=== PATIENT | female | born 1985 | race Asian ===

== ENCOUNTER 2016-09-16 08:23 | Inpatient (IN) ==
[2016-09-16] MEDS ORDERED: REGLAN PO ONE (08:30)
[2016-09-16] MEDS ORDERED: KEFZOL 1 GM/D5W 1 GM/50 ML IVPB IV PRN (08:30)
[2016-09-16] MEDS ORDERED: LR 1,000 ML IV SCH ×2 (08:30→11:00)
[2016-09-16] MEDS ORDERED: LR 500 ML IV ONE (08:30)
[2016-09-16] MEDS ORDERED: PEPCID PO ONE (08:30)
[2016-09-16] MEDS ORDERED: PEPCID IV ONE (11:00)
[2016-09-16 11:01] LABS: URINE SOURCE VOIDED
[2016-09-16 11:03] LABS: MANUAL DIFF NEEDED? NO
[2016-09-16 11:05] LABS: BASO% 0.1 % (0.0-0.8); EOS# 0.03 X1000 (0.0-0.7); EOS% 0.4 % (0.0-10.0); HEMOGLOBIN 13.3 g/dL (12.0-16.0); IMM GRAN# 0.04 X1000 (0.0-0.04); IMM GRAN% 0.5 % (0.0-0.5); LYMPH% 22.3 % (20.5-51.1); MCH 29.7 PG (27-31); MCHC 34.1 g/dL (33-37); MCV 87.1 FL (81-99); MONO# 0.74 X1000 (0.11-0.59); MONO% 8.7 % (1.7-9.3); MPV 11.3 FL (7.4-10.4); PLT 203 X1000 (130-400); RBC 4.48 XMIL (4.2-5.4)
[2016-09-16] MEDS ORDERED: BICITRA ONE (11:06)
[2016-09-16 11:07] LABS: BILIRUBIN URINE NEGATIVE (NEGATIVE); BLOOD URINE 1+ (NEGATIVE); CLARITY CLEAR (CLEAR); COLOR YELLOW; GLUCOSE URINE NEGATIVE (NEGATIVE); LEUKOCYTES URINE 2+ (NEGATIVE); NITRITE URINE NEGATIVE (NEGATIVE); PROTEIN URINE TRACE mg/dL (NEGATIVE); SP GRAVITY URINE 1.015; UROBILINOGEN URINE NORMAL
[2016-09-16] MEDS ORDERED: DURAMORPH ONE (11:11)
[2016-09-16] MEDS ORDERED: PITOCIN ONE (11:15)
[2016-09-16] MEDS ORDERED: ZOFRAN ONE (11:15)
[2016-09-16] MEDS ORDERED: TORADOL ONE (11:59)
[2016-09-16] MEDS ORDERED: PITOCIN 20 UNITS/LR 20 UNITS/1,000 ML IV.SOLN ONE (12:05)
[2016-09-16] MEDS ORDERED: PITOCIN IM PRN (12:25)
[2016-09-16] MEDS ORDERED: AMBIEN PO PRN (12:25)
[2016-09-16] MEDS ORDERED: HYDROXYZINE PO PRN (12:25)
[2016-09-16] MEDS ORDERED: HYDROXYZINE IM PRN (12:25)
[2016-09-16] MEDS ORDERED: DULCOLAX PR PRN (12:25)
[2016-09-16] MEDS ORDERED: PHENERGAN IM PRN (12:25)
[2016-09-16] MEDS ORDERED: PITOCIN 20 UNITS/LR 20 UNITS/1,000 ML IV.SOLN IV ONE (12:25)
[2016-09-16] MEDS ORDERED: M-M-R II VACCINE SUBQ ONE (12:25)
[2016-09-16] MEDS ORDERED: BOOSTRIX VACCINE IM ONE (12:25)
[2016-09-16] MEDS ORDERED: MYLICON PO PRN (12:25)
[2016-09-16] MEDS ORDERED: CYTOTEC PO PRN (12:25)
[2016-09-16] MEDS ORDERED: PERCOCET-5 PO PRN (12:25)
[2016-09-16] MEDS ORDERED: PITOCIN 10 UNITS/LR 10 UNIT/1,000 ML IV.SOLN IV SCH (12:30)
[2016-09-16] MEDS ORDERED: BENADRYL IV PRN (12:37)
[2016-09-16] MEDS ORDERED: ZOFRAN ODT PO PRN (12:37)
[2016-09-16] MEDS ORDERED: ZOFRAN IV PRN ×2 (12:37)
[2016-09-16] MEDS ORDERED: MORPHINE IV PRN (12:37)
[2016-09-16] MEDS ORDERED: NARCAN INJ PRN (12:37)
[2016-09-16] MEDS: TORADOL IV SCH ×2 (13:19→18:45)
--- NOTE | 2016-09-16 13:24 | HISTORY AND PHYSICAL ---
CHIEF COMPLAINT: History of section with desire for repeat. HISTORY OF PRESENT ILLNESS: This is a 31-year-old, G 3, P 2-0-0-2 with a history of at 39+ 0 weeks by a 14+ 0 week ultrasound, EDC 09/22/2016, who presents to [facility] for scheduled repeat low transverse section. course has been uncomplicated thus far. The patient states that she will absolutely desires permanent sterilization along with section. OBSTETRICAL HISTORY: G1 full-term vaginal delivery. G2 full-term section secondary to breech presentation. G3 current. Patient declined a trial of labor after section. PROGRAM HOST: Denies history of sexually transmitted infections. PAST MEDICAL HISTORY: Denies. PAST SURGICAL HISTORY: section x1. MEDICATIONS: vitamins. ALLERGIES: No known drug allergies. SOCIAL: Denies alcohol, tobacco or illicit drug use. REVIEW OF SYSTEMS: All systems negative. PHYSICAL EXAMINATION: GENERAL: Well-developed, well-nourished, female, no acute distress. HEENT: Pupils equal, round, react to light. Extraocular muscle intact. CHEST: Clear to auscultation bilaterally. CV: Regular rate and rhythm. No murmurs, rubs, or gallops. ABDOMEN: Soft, nontender, gravid. EXTREMITIES: No clubbing, cyanosis, edema. SKIN: No focal lesions. NEUROLOGIC: No focal deficits. ASSESSMENT AND PLAN: 1. Intrauterine at 39+ 0 weeks. 2. History of section x1 with desire for repeat. 3. Undesired fertility. We will plan for repeat section with bilateral tubal ligation. Risks and benefits were discussed with the patient including risks of bleeding, infection, injury to bowel and bladder, and the risk of tubal failure being 1 in 300 were discussed with the patient. The patient states that she agrees with the above risks and wants to proceed. cc: Juan Antonio Becerril MD
--- NOTE | 2016-09-16 14:00 | OPERATIVE NOTE ---
PROCEDURE DATE: 09/16/2016 PREOPERATIVE DIAGNOSES: 1. Intrauterine at 39+ 0 weeks. 2. History of section with desire for repeat. 3. Undesired fertility. POSTOP DIAGNOSIS: 1. Intrauterine at 39+ 0 weeks. 2. History of section with desire for repeat. 3. Undesired fertility. PRINCIPAL PROCEDURE: Repeat low transverse section with Hagaman bilateral tubal ligation. SURGEON: Dr. Becerril. HEAT TREATING OPERATOR: ANESTHESIA: [place]. FINDINGS: Normal uterus, ovaries and bilateral fallopian tubes. COMPLICATIONS: None apparent. ESTIMATED BLOOD LOSS: 100 mL. SPECIMENS: Placenta, bilateral fallopian tube segments. OPERATIVE COURSE: The patient identified and consents reviewed, spinal anesthesia was administered without complication. Patient is placed on the operative table in the dorsal supine position with a leftward tilt. Abdomen is prepped and draped in a normal sterile fashion. A Pfannenstiel skin incision was made and carried through the underlying layer of fascia. This extended laterally with Salinas scissors. The superior portion the fascial incision was grasped with Felicity clamps, elevated and the underlying rectus muscles were dissected off with Salinas scissors. Inferior portion performed in similar manner. Rectus muscle was then identified and in the midline. Peritoneum was identified entered bluntly. Bladder blade was inserted. Low transverse hysterotomy was made. Membranes were ruptured. Meconium fluid noted. Infant found to be in cephalic presentation. Infant delivered atraumatically. Nose and mouth were bulb suctioned. Cord was clamped and cut. Infant handed off to awaiting nursing staff. The placenta was manually extracted. The uterus was exteriorized and cleaned of all clots and debris. The hysterotomy was repaired with 0 chromic in a running locked fashion. Adequate hemostasis noted at the hysterotomy site. Bilateral fallopian tubes were then identified to their fimbriated ends. Midpoint was grasped with a [place] clamp and a Hagaman tubal ligation was performed. Contralateral side was performed in a similar manner. Tube segments sent to Pathology. The uterus returned to the intraperitoneal space. A 2nd [id number] suture was needed to achieve adequate hemostasis at the hysterotomy site. The peritoneum was then reapproximated using 0 chromic. Fascia was closed with 0 Vicryl in a running fashion. Subcutaneous tissues closed with plain gut suture. The skin was closed with 4-0 Biosyn as well as Dermabond. Patient tolerated the procedure well. She has taken to the recovery room afterwards in stable condition. cc: Juan Antonio Becerril MD
[2016-09-16] MEDS: MYLICON PO SCH ×3 (16:23→20:24)
[2016-09-16] MEDS: PERICOLACE PO SCH (20:21)
[2016-09-17] MEDS: TORADOL IV SCH ×2 (00:46→05:54)
[2016-09-17 06:45] LABS: HEMATOCRIT 25.6 % (37.0-47.0); HEMOGLOBIN 8.5 g/dL (12.0-16.0); MCH 29.2 PG (27-31); MCHC 33.2 g/dL (33-37); MPV 11.2 FL (7.4-10.4); RBC 2.91 XMIL (4.2-5.4)
[2016-09-17] MEDS: MYLICON PO SCH ×4 (08:46→20:32)
[2016-09-17] MEDS ORDERED: LR 1,000 ML IV SCH (12:26)
[2016-09-17] MEDS: PERCOCET-10 PO PRN ×2 (13:17→20:31)
[2016-09-17 17:49] LABS: MANUAL DIFF NEEDED? NO
[2016-09-17 17:54] LABS: BASO% 0.1 % (0.0-0.8); EOS# 0.02 X1000 (0.0-0.7); EOS% 0.2 % (0.0-10.0); HEMATOCRIT 24.9 % (37.0-47.0); HEMOGLOBIN 8.3 g/dL (12.0-16.0); IMM GRAN# 0.02 X1000 (0.0-0.04); IMM GRAN% 0.2 % (0.0-0.5); LYMPH# 1.85 X1000 (1.2-3.4); LYMPH% 17.4 % (20.5-51.1); MCH 29.5 PG (27-31); MCHC 33.3 g/dL (33-37); MCV 88.6 FL (81-99); MONO# 0.71 X1000 (0.11-0.59); MONO% 6.7 % (1.7-9.3); NEUT% 75.4 % (42.2-75.2); PLT 160 X1000 (130-400); RBC 2.81 XMIL (4.2-5.4)
[2016-09-17] MEDS: PERICOLACE PO SCH (20:31)
[2016-09-18] MEDS: PERCOCET-10 PO PRN (05:07)
[2016-09-18] MEDS ORDERED: D/C PCA XX ONE (08:00)
[2016-09-18] MEDS: MYLICON PO SCH ×2 (09:20→21:42)
[2016-09-18] MEDS: PERICOLACE PO SCH (21:42)
[2016-09-19] MEDS: MYLICON PO SCH (09:12)
[2016-09-19] MEDS: PERCOCET-10 PO PRN (09:19)
--- NOTE | 2016-09-19 11:46 | DISCHARGE SUMMARY ---
ADMISSION DATE: 09/16/2016 DISCHARGE DATE: 09/19/2016 ADMITTING DIAGNOSES: 1. Term . 2. Previous requesting repeat . 3. Undesired fertility. POSTOPERATIVE DIAGNOSES: 1. Term . 2. Previous requesting repeat . 3. Undesired fertility. PRINCIPLE PROCEDURE: Repeat and tubal sterilization. SUMMARY: Vania Hunt is a 31-year-old, 3, para 2-0-0-2, who has had a previous section. She was requesting repeat and also desired tubal sterilization. She was therefore admitted to the hospital by Dr. Becerril and underwent a repeat and tubal sterilization. There were no intraoperative complications and she delivered a 7 pound 12 ounce male infant with Apgars of 9 at 1 minute and 10 at 5 minutes. Postoperatively, the patient did well except for post spinal headache. Her laboratory evaluation showed admission hemoglobin and hematocrit of 13.3/39 with a discharge hemoglobin and hematocrit being 8.3/24.9. On the day of discharge, her vital signs were stable. She is afebrile. She was ambulating without difficulty and this morning her headache is improved. DISPOSITION: She will be discharged today. DISCHARGE INSTRUCTIONS: We will see her back in the office in a week. She will continue vitamins. She is given prescriptions for Percocet and Motrin. We have encouraged a lot of fluid intake and she is to call if there are any problems. cc: MD Juan Antonio Garsia MD
== END 2016-09-19 12:30 | disposition home or self-care (01) ==
LOC: P.LD 08:23 → P.WC 14:14
PROVIDERS: ADMIT Obstetrics & Gynecology; ATTEND Obstetrics & Gynecology